=== PATIENT | male | born 1960 | race African-American/Black ===

== ENCOUNTER 2016-11-04 21:40 | Emergency (ER) | payer OTHER ==
[~2016-11-04] VITALS: Ht 172.7 cm; Wt 90.7 kg
[2016-11-04 23:00] VITALS: BP 165/96
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
[2016-11-04] MEDS ORDERED: fentaNYL PF VIAL 100 MCG/2 ML VIAL IV ONE (23:30)
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
== END 2016-11-05 00:03 | disposition home or self-care (01) ==
LOC: ER 21:40
DX: S16.1XXA Strain of muscle, fascia and tendon at neck level, initial encounter (principal); I10 Essential (primary) hypertension; V43.52XA Car driver injured in collision with other type car in traffic accident, initial encounter; Y93.89 Activity, other specified; Y99.8 Other external cause status; Y92.89 Other specified places as the place of occurrence of the external cause
CPT/HCPCS: 70450; 72125; 96374; 99284; J3010